=== PATIENT | female | born 2000 | race Caucasian/White ===

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

== ENCOUNTER 2022-03-11 16:46 | Emergency (ER) | payer SELFPAY ==
[2022-03-11 17:16] VITALS: BP 150/94; PULSE 100; TEMP 98.2; BMI 33.5
[2022-03-11] MEDS ORDERED: IBUPROFEN 600 MG TABLET (FP) PO ONE ×2 (17:28→18:07)
== END 2022-03-11 18:07 | disposition home or self-care (01) ==
LOC: JERFT 16:46
DX: M79.672 Pain in left foot (principal)
CPT/HCPCS: 73610-TC-LT-FY; 73630-TC-LT; 99283-25

== ENCOUNTER 2023-11-06 22:11 | Emergency (ER) | payer SELFPAY ==
[2023-11-06 22:21] VITALS: BP 126/70; PULSE 90; RESP 18; TEMP 99.2; BMI 33.5
== END 2023-11-07 00:25 | disposition home or self-care (01) ==
LOC: FER 22:11
DX: R05.9 Cough, unspecified (principal); R06.2 Wheezing; R09.3 Abnormal sputum; R09.81 Nasal congestion; R09.89 Other specified symptoms and signs involving the circulatory and respiratory systems; J02.9 Acute pharyngitis, unspecified; J40 Bronchitis, not specified as acute or chronic
CPT/HCPCS: 99283-25